=== PATIENT | male | born 1960 | race Caucasian/White ===

== ENCOUNTER 2018-06-26 10:34 | Observation (INO) | payer BC ==
[2018-06-26] MEDS ORDERED: 0.9 % SODIUM CHLORIDE 1,000 ML BAG IV ONE (11:05)
[2018-06-26] MEDS ORDERED: ACETAMINOPHEN 325 MG TAB PO ONE (11:05)
--- NOTE | 2018-06-26 11:21 | Emergency Department Record ---
History of Present Illness - General Chief complaint: Fatigue and Weakness Stated complaint: NOT FEELING WELL/WEAK/DIZZY Time Seen by Provider: 06/26/18 10:48 Source: Patient Mode of Arrival: Ambulatory Limitations: No limitations - History of Present Illness Initial comments: The patient is here due to not feeling well for a few hours. He was at work and then became weak all over and slightly dizzy. He also has complained of a mild cough and mild upper AP. There has been no fever, chills, vomiting, diarrhea, CP , SOB, or sputum production. The patient does have a hx of Cirrhosis and Psoriatic Arthritis and is on Enbrel. MD Complaint: Generalized weakness, Lack of energy Onset/Timin -: Hour(s) Location: Generalized Severity: Moderate Severity scale (1-10): 7 Quality: Aching Improves with: None Worsens with: None Associated Symptoms: Denies other symptoms - Related Data Home Medications Medication Instructions Recorded Confirmed Last Taken Amlodipine Besylate [Norvasc] 10 mg PO DAILY 06/26/18 06/26/18 Unknown Cyanocobalamin (Vitamin B-12) 1,000 mcg IJ MONTHLY 06/26/18 06/26/18 Unknown [Cyanocobalamin Injection] Etanercept [Enbrel Sureclick] 50 mg SQ WEEKLY 06/26/18 06/26/18 Unknown Allergies Allergy/AdvReac Type Severity Reaction Status Date / Time No Known Drug Allergies Allergy Verified 06/26/18 10:48 Travel Screening - Travel/Exposure Within Last 30 Days Have you traveled within the last 30 days?: No Review of Systems Constitutional: Denies: Chills, Fever Eyes: Denies: Eye discharge ENT: Denies: Congestion Respiratory: Denies: Cough, Dyspnea Cardiovascular: Denies: Chest pain Endocrine: Reports: Fatigue Gastrointestinal: Denies: Abdominal pain Genitourinary: Denies: Dysuria Musculoskeletal: Reports: Arthralgia Past Medical History - SOCIAL HISTORY Smoking Status: Never smoker Alcohol Use: None Drug Use: None - RESPIRATORY Hx Respiratory Disorders: No - CARDIOVASCULAR Hx Cardio Disorders: Yes Hx Hypertension: Yes - NEURO Hx Neuro Disorders: No - GI Hx GI Disorders: Yes Hx Liver Disease: Yes (cirrhosis) - Hx Genitourinary Disorders: No - ENDOCRINE Hx Endocrine Disorders: No - MUSCULOSKELETAL Hx Musculoskeletal Disorders: Yes Hx Arthritis: Yes - PSYCH Hx Psych Problems: No - HEMATOLOGY/ONCOLOGY Hx Hematology/Oncology Disorders: No Family Medical History Any Significant Family History?: No Physical Exam - General General Appearance: Alert, Oriented x3, Cooperative, No acute distress - Head Head exam: Atraumatic, Normocephalic, Normal inspection - Eye Eye exam: Normal appearance, PERRL, EOMI - ENT Throat exam: Normal inspection. negative: Tonsillar erythema, Tonsillar exudate - Neck Neck exam: Normal inspection, Full ROM. negative: Tenderness - Respiratory Respiratory exam: Normal lung sounds bilaterally. negative: Respiratory distress - Cardiovascular Cardiovascular Exam: Regular rate, Normal rhythm, Normal heart sounds - GI/Abdominal GI/Abdominal exam: Soft, Normal bowel sounds, Tenderness (There is mild epigastric tenderness.). negative: Rebound, Rigid - Extremities Extremities exam: Normal inspection, Full ROM, Normal capillary refill. negative: Tenderness - Back Back exam: Reports: Normal inspection. Denies: Vertebral tenderness - Neurological Neurological exam: Alert, Normal gait. negative: Abnormal gait, Motor sensory deficit - Skin Skin exam: negative: Rash Course Vital Signs 06/26/18 10:38 Temperature 99.6 F Pulse Rate 94 H Respiratory 18 Rate Blood Pressure 169/86 Pulse Ox 94 L - Reevaluation(s) Reevaluation #1: The patient is doing better at this time with a decrease in his temp to 99.8 from 101.7. There presently is no DE JESUS, cough, skin rash or neck stiffness. Due to the patient's arthritis and cirrhosis he technically is mildly immunocompromised. Because of the fever spike I did consult his Rheumatology [facility] doctors and they did recommend hospital admission. I did then discuss the case with Dr. Ordoñez and he does accept the admission. 06/26/18 14:30 Medical Decision Making - Data Complexity MDM Data: Labs Ordered and/or Reviewed, X-Ray Ordered and/or Reviewed, EKG Ordered and/or Reviewed - Lab Data Result diagrams: 06/26/18 11:20 06/26/18 11:20 - EKG Data -: EKG Interpreted by Me EKG: No Acute Changes (NSR at 93, Prolonged HI interval, Possible old yulia- septal TN. Neg for any acute changes.) - Radiology Data Radiology results: Report reviewed (CXR: PIYUSH nodule 11 mm.) Disposition Disposition: Admit Clinical Impression: Bacteremia Disposition: Still a Patient at [facility] Decision to Admit: Admit from ER Decision to Admit Date: 06/26/18 Decision to Admit Time: 14:32 Accepting Physician: Smita Time Discussed w/Accepting Physician: 14:32 Condition: (2) Stable Forms: Patient Portal Access Time of Disposition: 14:32 Quality - Quality Measures Quality Measures: N/A - Blood Pressure Screening View Details: Yes Does Patient Have Any of the Following: No Blood Pressure Classification: Pre-Hypertensive BP Reading Systolic Measurement: 169 Diastolic Measurement: 86 Screening for High Blood Pressure: < Pre-Hypertensive BP, F/U Documented > [ G8950] Pre-Hypertensive Follow-up Interventions: Referral to alternative/primary care provider.
[2018-06-26 11:35] LABS: HEMATOCRIT 45.7 % (42.0-52.0); HEMOGLOBIN 15.7 gm/dl (14.0-18.0); MEAN CELL VOLUME 81.8 fl (81-97); MEAN CORPUSCULAR HEMOGLOBIN 28.1 pg (27-33); MEAN CORPUSCULAR HGB CONC 34.4 g/dl (32-36); MEAN PLATELET VOLUME 10.7 fl (7.4-10.4); PLATELET COUNT 72 K/uL (130-400); RED BLOOD COUNT 5.59 M/uL (4.40-5.70); RED CELL DISTRIBUTION WIDTH 14.3 % (11.5-14.5); WHITE BLOOD COUNT W/O DIFF 8.3 K/uL (4.2-12.2)
[2018-06-26 11:45] LABS: PLATELET ESTIMATE DECREASED (NORMAL)
[2018-06-26 11:52] LABS: BLOOD UREA NITROGEN 15 mg/dL (6-20); CREATININE 0.9 mg/dL (0.7-1.2); EST GLOMERULAR FILTRATION RATE > 60 mL/min
[2018-06-26 11:53] LABS: INR 1.2; PARTIAL THROMBOPLASTIN TIME 30.7 SECONDS (24.5-39.1); PROTHROMBIN TIME (PATIENT) 12.2 SECONDS (9.5-12.1); TOTAL PROTEIN 7.3 g/dL (6.6-8.7)
[2018-06-26 11:55] LABS: GLUCOSE,RANDOM 103 mg/dL (74-109)
[2018-06-26 11:58] LABS: ALB/GLOB RATIO 1.5 (1.1-1.8); ALBUMIN 4.4 g/dL (4.0-5.0); ALKALINE PHOSPHATASE 90 U/L (40-129); ALT/SGPT 55 U/L (<41); AST/SGOT 47 U/L (10.0-50.0); CREATINE PHOSPHOKINASE 81 U/L (39-308)
[2018-06-26 12:00] LABS: CKMB 1.3 ng/mL (<6.73)
[2018-06-26 12:10] LABS: THYROID STIMULATING HORMONE 1.07 uIU/mL (0.270-4.20)
[2018-06-26] MEDS ORDERED: IBUPROFEN 600 MG TABLET PO ONE (12:40)
[2018-06-26 13:00] LABS: URINE APPEARANCE CLEAR; URINE BILIRUBIN NEGATIVE (NEGATIVE); URINE BLOOD NEGATIVE (NEGATIVE); URINE COLOR YELLOW; URINE GLUCOSE (UA) NEGATIVE (NEGATIVE); URINE KETONE TRACE (NEGATIVE); URINE LEUKOCYTE ESTERASE NEGATIVE (NEGATIVE); URINE NITRITE NEGATIVE (NEGATIVE); URINE PROTEIN NEGATIVE (NEGATIVE); URINE UROBILINOGEN 0.2 E.U./dL (0.20 - 1.00)
[2018-06-26] MEDS ORDERED: CEFTRIAXONE SODIUM 1 GM in 0.9 % SODIUM CHLORIDE 100ML 100 ML IVPB ONE (13:39)
--- NOTE | 2018-06-26 15:37 | Emergency Department Record ---
History of Present Illness - General Chief complaint: Fatigue and Weakness Stated complaint: NOT FEELING WELL/WEAK/DIZZY Time Seen by Provider: 06/26/18 10:48 Source: Patient Mode of Arrival: Ambulatory Limitations: No limitations - History of Present Illness MD Complaint: Generalized weakness, Lack of energy Onset/Timin -: Hour(s) Location: Generalized Severity: Moderate Severity scale (1-10): 7 Quality: Aching Improves with: None Worsens with: None Associated Symptoms: Denies other symptoms - Related Data Home Medications Medication Instructions Recorded Confirmed Last Taken Amlodipine Besylate [Norvasc] 10 mg PO DAILY 06/26/18 06/26/18 Unknown Cyanocobalamin (Vitamin B-12) 1,000 mcg IJ MONTHLY 06/26/18 06/26/18 Unknown [Cyanocobalamin Injection] Etanercept [Enbrel Sureclick] 50 mg SQ WEEKLY 06/26/18 06/26/18 Unknown Allergies Allergy/AdvReac Type Severity Reaction Status Date / Time No Known Drug Allergies Allergy Verified 06/26/18 10:48 Travel Screening - Travel/Exposure Within Last 30 Days Have you traveled within the last 30 days?: No Review of Systems Constitutional: Denies: Chills, Fever Eyes: Denies: Eye discharge ENT: Denies: Congestion Respiratory: Denies: Cough, Dyspnea Cardiovascular: Denies: Chest pain Endocrine: Reports: Fatigue Gastrointestinal: Denies: Abdominal pain Genitourinary: Denies: Dysuria Musculoskeletal: Reports: Arthralgia Past Medical History - SOCIAL HISTORY Smoking Status: Never smoker Alcohol Use: None Drug Use: None - RESPIRATORY Hx Respiratory Disorders: No - CARDIOVASCULAR Hx Cardio Disorders: Yes Hx Hypertension: Yes - NEURO Hx Neuro Disorders: No - GI Hx GI Disorders: Yes Hx Liver Disease: Yes (cirrhosis) - Hx Genitourinary Disorders: No - ENDOCRINE Hx Endocrine Disorders: No - MUSCULOSKELETAL Hx Musculoskeletal Disorders: Yes Hx Arthritis: Yes - PSYCH Hx Psych Problems: No - HEMATOLOGY/ONCOLOGY Hx Hematology/Oncology Disorders: No Family Medical History Any Significant Family History?: No Physical Exam - General Limitations: No limitations Course Vital Signs 06/26/18 06/26/18 06/26/18 10:38 12:35 13:32 Temperature 99.6 F 101.7 F H 99.8 F H Pulse Rate 94 H Pulse Rate [ 97 H Pulse Ox Probe] Respiratory 18 18 Rate Blood Pressure 169/86 Blood Pressure 128/87 [Left Arm] Pulse Ox 94 L 98 - Reevaluation(s) Reevaluation #1: I did also discuss the L upper Lung nodule with the patient and . He is to F /U with his PCP for further evaluation and for a possible chest CT as an outpatient. The patient and do understand the plan and will comply. 06/26/18 15:36 Medical Decision Making - Lab Data Result diagrams: 06/26/18 11:20 06/26/18 11:20 Lab Results 06/26/18 06/26/18 06/26/18 Range/Units 11:20 11:20 11:20 WBC 8.3 (4.2-12.2) K/uL RBC 5.59 (4.40-5.70) M/uL Hgb 15.7 (14.0-18.0) gm/dl Hct 45.7 (42.0-52.0) % MCV 81.8 (81-97) fl MCH 28.1 (27-33) pg MCHC 34.4 (32-36) g/dl RDW 14.3 (11.5-14.5) % Plt Count 72 L (130-400) K/uL MPV 10.7 H (7.4-10.4) fl Neutrophils % 83.0 H (47-80) % Band Neutrophils % 3.0 (0-5) % Eosinophils % Not Reportable Basophils % Not Reportable Lymphocytes 7.0 L (16-45) % Monocytes 7.0 (0-9) % Platelet Estimate Decreased (NORMAL) RBC Morphology Normal PT 12.2 H (9.5-12.1) SECONDS INR 1.2 APTT 30.7 (24.5-39.1) SECONDS Sodium 141 (136-145) mmol/L Potassium 3.8 (3.4-4.5) mmol/L Chloride 102 (98-107) mmol/L Carbon Dioxide 26.0 (22-29) mmol/L Anion Gap 13.0 (7-16) BUN 15 (6-20) mg/dL Creatinine 0.9 (0.7-1.2) mg/dL Estimated GFR > 60 mL/min Random Glucose 103 (74-109) mg/dL Calcium 8.9 (8.6-10.0) mg/dL Total Bilirubin 2.40 H (0.2-1.0) mg/dL AST 47 (10.0-50.0) U/L ALT 55 H (<41) U/L Alkaline Phosphatase 90 (40-129) U/L Creatine Kinase 81 (39-308) U/L CK-MB (CK-2) 1.3 (<6.73) ng/mL Troponin T < 0.010 (0-0.010) ng/mL C-Reactive Protein (<0.5) mg/dL Total Protein 7.3 (6.6-8.7) g/dL Albumin 4.4 (4.0-5.0) g/dL Globulin 2.9 (1.4-4.8) gm/dL Albumin/Globulin Ratio 1.5 (1.1-1.8) Lipase (13-60) U/L TSH 1.07 (0.270-4.20) uIU/mL Urine Color Urine Appearance Urine pH (5.0-8.0) Ur Specific [place] (1.002-1.030) Urine Protein (NEGATIVE) Urine Glucose (UA) (NEGATIVE) Urine Ketones (NEGATIVE) Urine Blood (NEGATIVE) Urine Nitrite (NEGATIVE) Urine Bilirubin (NEGATIVE) Urine Urobilinogen (0.20 - 1.00) E.U./dL Ur Leukocyte Esterase (NEGATIVE) 06/26/18 06/26/18 06/26/18 Range/Units 11:20 12:29 12:51 WBC (4.2-12.2) K/uL RBC (4.40-5.70) M/uL Hgb (14.0-18.0) gm/dl Hct (42.0-52.0) % MCV (81-97) fl MCH (27-33) pg MCHC (32-36) g/dl RDW (11.5-14.5) % Plt Count (130-400) K/uL MPV (7.4-10.4) fl Neutrophils % (47-80) % Band Neutrophils % (0-5) % Eosinophils % Basophils % Lymphocytes (16-45) % Monocytes (0-9) % Platelet Estimate (NORMAL) RBC Morphology PT (9.5-12.1) SECONDS INR APTT (24.5-39.1) SECONDS Sodium (136-145) mmol/L Potassium (3.4-4.5) mmol/L Chloride (98-107) mmol/L Carbon Dioxide (22-29) mmol/L Anion Gap (7-16) BUN (6-20) mg/dL Creatinine (0.7-1.2) mg/dL Estimated GFR mL/min Random Glucose (74-109) mg/dL Calcium (8.6-10.0) mg/dL Total Bilirubin (0.2-1.0) mg/dL AST (10.0-50.0) U/L ALT (<41) U/L Alkaline Phosphatase (40-129) U/L Creatine Kinase (39-308) U/L CK-MB (CK-2) (<6.73) ng/mL Troponin T (0-0.010) ng/mL C-Reactive Protein 0.18 (<0.5) mg/dL Total Protein (6.6-8.7) g/dL Albumin (4.0-5.0) g/dL Globulin (1.4-4.8) gm/dL Albumin/Globulin Ratio (1.1-1.8) Lipase 42 (13-60) U/L TSH (0.270-4.20) uIU/mL Urine Color Yellow Urine Appearance Clear Urine pH 7.0 (5.0-8.0) Ur Specific [place] 1.010 (1.002-1.030) Urine Protein Negative (NEGATIVE) Urine Glucose (UA) Negative (NEGATIVE) Urine Ketones Trace H (NEGATIVE) Urine Blood Negative (NEGATIVE) Urine Nitrite Negative (NEGATIVE) Urine Bilirubin Negative (NEGATIVE) Urine Urobilinogen 0.2 (0.20 - 1.00) E.U./dL Ur Leukocyte Esterase Negative (NEGATIVE) Disposition Clinical Impression: Bacteremia Disposition: Still a Patient at [facility] Condition: (2) Stable Forms: Patient Portal Access Quality - Quality Measures Quality Measures: N/A - Blood Pressure Screening View Details: Yes Does Patient Have Any of the Following: No Blood Pressure Classification: Pre-Hypertensive BP Reading Systolic Measurement: 169 Diastolic Measurement: 86 Screening for High Blood Pressure: < Pre-Hypertensive BP, F/U Documented > [ G8950] Pre-Hypertensive Follow-up Interventions: Referral to alternative/primary care provider.
[2018-06-26] MEDS ORDERED: 0.9 % SODIUM CHLORIDE 1000ML 1,000 ML IV PRN (16:25)
[2018-06-26] MEDS ORDERED: ACETAMINOPHEN 325 MG TAB PO PRN (16:25)
[2018-06-26] MEDS ORDERED: IBUPROFEN 400 MG TABLET PO PRN (16:25)
[2018-06-26] MEDS ORDERED: CEFTRIAXONE 1GM/50ML BAG 1 GM/50 ML BAG IVPB SCH (22:00)
[2018-06-27 06:39] LABS: BASO % 0.2 % (0-6); GRAN % 78.8 % (47-80); HEMATOCRIT 42.1 % (42.0-52.0); HEMOGLOBIN 14.2 gm/dl (14.0-18.0); LYMPH % 13.7 % (16-45); MEAN CELL VOLUME 82.5 fl (81-97); MEAN CORPUSCULAR HEMOGLOBIN 27.8 pg (27-33); MEAN CORPUSCULAR HGB CONC 33.7 g/dl (32-36); MEAN PLATELET VOLUME 10.4 fl (7.4-10.4); MONO % 7.3 % (0-9); PLATELET COUNT 58 K/uL (130-400); RED CELL DISTRIBUTION WIDTH 14.2 % (11.5-14.5)
[2018-06-27 07:01] LABS: ALB/GLOB RATIO 1.4 (1.1-1.8); ALBUMIN 3.5 g/dL (4.0-5.0); ALKALINE PHOSPHATASE 69 U/L (40-129); ALT/SGPT 44 U/L (<41); AST/SGOT 36 U/L (10.0-50.0); BLOOD UREA NITROGEN 16 mg/dL (6-20); CREATININE 0.9 mg/dL (0.7-1.2); EST GLOMERULAR FILTRATION RATE > 60 mL/min; GLUCOSE,RANDOM 110 mg/dL (74-109)
[2018-06-27] MEDS ORDERED: CEPHALEXIN 500 MG CAPSULE PO SCH (07:15)
--- NOTE | 2018-06-27 07:36 | Discharge Note ---
VTE H&P Assessment - Risk for VTE Risk for VTE: Yes Risk Level: Very Low Risk Assessment Date: 06/26/18 Risk Assessment Time: 07:00 VTE Orders Placed or Will Be Placed: No VTE Reason for No Prophylaxis: Contraindicated, Not Indicated (platelet count low ,liver disease) Discharge Medications - Discharge Medications Prescriptions: Cephalexin [Keflex] 500 mg PO Q6H #28 capsule Home Medications: Ambulatory Orders Amlodipine Besylate [Norvasc] 10 mg PO DAILY 06/26/18 [Last Taken Unknown] Cyanocobalamin (Vitamin B-12) [Cyanocobalamin Injection] 1,000 mcg IJ MONTHLY [Last Taken Unknown] Acetaminophen [Tylenol 325Mg] 650 mg PO Q6H PRN tablet 06/27/18 [Last Taken Unknown] Amlodipine Besylate [Norvasc] 10 mg PO DAILY tab 06/27/18 [Last Taken Unknown] Cephalexin [Keflex] 500 mg PO Q6H #28 capsule 06/27/18 [Last Taken Unknown] Ibuprofen [Motrin] 400 mg PO Q8H PRN tablet 06/27/18 [Last Taken Unknown] Discharge Note - Date Date of Discharge Note: 06/27/18 Disposition: Home, Self-Care Condition: (2) Stable Additional Instructions: follow up with family 7-14 days and sooner if worse only use tylenol up to 2 gms in 24 hours because of liver motrin 400 mg every 6 prn fever Forms: Patient Portal Access Activity at Discharge: Increase Activity as Tolerated
--- NOTE | 2018-06-27 07:38 | RADIOLOGY REPORT ---
EXAM: CHEST, TWO VIEWS HISTORY: DIFFICULTY IN BREATHING. TECHNIQUE: Frontal and lateral views of the chest were performed. FINDINGS: The heart size is normal. No pulmonary vascular congestion. Focal nodular opacity in the left upper lobe measuring approximately 11 mm. Mild degenerative change of the thoracic spine. IMPRESSION: 1. NO LOBAR CONSOLIDATION OR PLEURAL EFFUSION. 2. FOCAL NODULAR OPACITY IN THE LEFT UPPER LOBE MEASURING 11 MM. JOB NUMBER: [id number] MTDD
[2018-06-27] MEDS ORDERED: AMLODIPINE BESYLATE 5MG TAB PO SCH (10:00)
--- NOTE | 2018-07-02 09:10 | History and Physical Report ---
DATE: 06/26/2018 at 5:10 p.m. CHIEF COMPLAINT: Fever of unknown etiology, possibly cough. HISTORY OF PRESENT ILLNESS: This 58-year-old male presented to the emergency department weak with a fever of 101, shakes, felt nausea all over, bilateral hip pain which is chronic psoriatic arthritis pain. The patient was seen in the emergency department by Dr. Peace who called the rheumatology doctor at [facility]. They were concerned because he has Enbrel and with a fever, they recommend observation for 24 hours to see if anything develops for bacteremia. He has cirrhosis of the liver from fatty liver infiltration and the use of Enbrel to immunocompromise him. The patient was at work when this came on. He felt slightly dizzy, mild cough, a little bit of upper abdominal pain. He has a history of fatty liver cirrhosis and psoriatic arthritis and on Enbrel. The patient monitored temperature in the emergency department 101.7 with chills. He has no new skin rashes but he has psoriatic arthritis in bilateral hips, abdomen, and both legs. It looks chronic with flaking skin. I do not really see any new inflammation. He has hyperpigmented lower legs. His EKG showed no acute change. His chest x-ray showing left upper lobe nodule [address] of the chest was recommended by Radiology as an outpatient. The patient was given 1 g of Rocephin in the emergency department, ibuprofen 400 mg, and Tylenol. His fever came down. The patient felt that the Motrin helped the most. PAST MEDICAL HISTORY: Cirrhosis of the liver from fatty liver and psoriatic arthritis. He has hypertension, GERD, psoriatic arthritis. PAST SURGICAL HISTORY: Gallbladder removal and appendectomy as a child. SOCIAL HISTORY: Never smoked. No alcohol or drug use. FAMILY HISTORY: Unremarkable. MEDICATIONS: 1. Enbrel 50 mg weekly subcu on Mondays. 2. Vitamin B12, 1000 mcg monthly injection. 3. Amlodipine 10 mg daily. ALLERGIES: No known drug allergies. REVIEW OF SYSTEMS: HEENT: No upper respiratory infection symptoms. He does have a slight cough. No sore throat. Cardiovascular: No chest pain, palpitations, or arrhythmia. Respiratory: Slight cough. No smoking history. Gastrointestinal: No nausea, vomiting, diarrhea, black stools, or bloody stools. Genitourinary: No dysuria, hematuria, frequency, or burning on urination. Urine and chest x-ray were essentially negative in the emergency department. Musculoskeletal: He has psoriatic arthritis lesions on his skin. Neurological: No CVA, paralysis, or paresthesias. Endocrine: No diabetes or thyroid disease. Integument: No rash, ulcers, change in moles, or yellow skin. PHYSICAL EXAMINATION: VITALS: Height 5 feet 11 inches, weight 277 pounds. Temperature 101.7 in the emergency department, blood pressure now is running 143/77, respiratory rate 16, pulse 77, pulse ox 97% on room air. HEENT: Pupils are equal, round, and reactive to light and accommodation. Extraocular muscles are intact. Throat is clear. Nose is clear. Tympanic membranes are san[place]. NECK: Supple. No jugular venous distention. No hepatojugular reflux. No carotid bruits. Thyroid is smooth. CARDIOVASCULAR: Regular rate and rhythm without murmurs, clicks, rubs, or gallops. RESPIRATORY: Clear to auscultation and percussion. ABDOMEN: Soft, obese, nontender. No hepatosplenomegaly, no masses, no tenderness. Bowel sounds are active. No bruits. EXTREMITIES: No pitting edema. No cyanosis, no clubbing. He has psoriatic arthritic lesions on his hips, abdomen, and lower legs. Peripheral pulses are good. Some edema of his legs bilaterally. Chronic hyperpigmentation of the lower legs. No signs of new redness or inflammation. BREASTS: Normal male breasts. RECTAL: Exam deferred. GENITALIA: Deferred. NEUROLOGIC: Cranial nerves II-XII intact. No gross defects. Sensation normal, strength normal. Deep tendon reflexes equal bilaterally with Babinski negative. MENTAL STATUS: Alert and oriented x3. IMPRESSION: 1. Fever. 2. Cough. 3. Psoriatic arthritis. 4. Hypertension. PLAN: Rocephin 1 g q.12 h. Blood cultures and urine culture were taken in the emergency department. MERLYN
--- NOTE | 2018-07-02 09:20 | Discharge Summary ---
DATE: 06/27/2018 at 7:30 a.m. DISCHARGE DIAGNOSES: 1. Fever. 2. Viral syndrome. 3. Immunocompromise with cirrhosis of the liver and psoriatic arthritis, getting Enbrel shots once a week. ATTENDING PHYSICIAN: Vlad Ordoñez DO REASON FOR HOSPITALIZATION: Fever, chills. The patient was admitted to the hospital because of his immunocompromised state and his fever with no source. Blood cultures were obtained. A urine culture was obtained and he was placed for observation to see if things get worse. [facility]'s rheumatology contacts were contacted. They felt an observation period would be good to make sure he is not septic. THERAPY PROVIDED: The patient was given IV Rocephin 2 doses. He was without a fever through the night. He was eating, feeling much better, walking around the room, stable. The patient would like to leave. He is going on vacation to [facility]. HOSPITAL COURSE: Unremarkable. CONDITION ON DISCHARGE: Stable. DISCHARGE INSTRUCTIONS: Follow up with his family doctor in 7-14 days when back from [facility]. Follow up with a local doctor if he has troubles [place]. Stop the Enbrel for 2 weeks. Keflex 500 mg q.i.d. for 7 days. Limit Tylenol to 2 g per 24 hours. Use Motrin first for a fever, 400 mg q.6 h., and then Tylenol second. Fluids and rest. DISCHARGE MEDICATION: 1. Keflex 500 mg q.i.d. 2. Norvasc 10 mg daily. 3. Vitamin B12, 1000 mcg monthly IM. 4. Ibuprofen p.r.n. ADDENDUM: Chest x-ray had a small nodular spot in the left upper lobe. Talked to the patient about this. He will need followup x-rays, possibly a followup CT scan. At this point, this can be worked up as an outpatient through the family doctor, Dr. Heck. MERLYN
== END 2018-06-27 08:12 | disposition home or self-care (01) ==
LOC: ER 10:34 → MEDSURG 16:02
PROVIDERS: ADMIT Emergency Medicine; ATTEND Emergency Medicine
DX: R50.9 Fever, unspecified (principal); B34.9 Viral infection, unspecified; L40.50 Arthropathic psoriasis, unspecified; R91.1 Solitary pulmonary nodule; K74.60 Unspecified cirrhosis of liver; I10 Essential (primary) hypertension; M19.90 Unspecified osteoarthritis, unspecified site
CPT/HCPCS: 82550; 83690; 85025; 85730; 85610; 86140; 82553; 80053 ×2; 81003; 84443; 84484; 85027; 71046; 93005 ×2; 93010 ×2; G0378 ×2; J0696; 96365; 99217; 99220; 99285; J7030